=== PATIENT | male | born 1995 | race Caucasian/White ===

== ENCOUNTER 2019-06-26 17:08 | Emergency (ER) | payer MEDICAID, OTHER ==
[~2019-06-26] VITALS: Ht 175.3 cm; Wt 81.8 kg
[~2019-06-26 17:08] MED LIST: OMEP20CA4 PO
[2019-06-26 17:13] VITALS: BP 139/89
[2019-06-26] MEDS ORDERED: LIDOcaine 1% W/epiNEPHrine 1:200,000 10ml vial IJ ONE (17:20)
[2019-06-26] MEDS ORDERED: SULF1TAB49 PO (17:43)
[2019-06-26] MEDS ORDERED: CEPH500C5 PO (17:43)
== END 2019-06-26 17:53 | disposition home or self-care (01) ==
LOC: ER 17:09
DX: L02.414 Cutaneous abscess of left upper limb (principal); Z90.49 Acquired absence of other specified parts of digestive tract; Z79.899 Other long term (current) drug therapy; Z88.0 Allergy status to penicillin
CPT/HCPCS: 10060; 99283

== ENCOUNTER 2019-10-31 08:23 | Emergency (ER) | payer MEDICAID, OTHER ==
[~2019-10-31] VITALS: Ht 175.3 cm; Wt 77.3 kg
[2019-10-31 09:29] LABS: BASOPHILS % (AUTO) 0.4 % (0-1); EOSINOPHILS # (AUTO) 0.1 X10'3 (0-0.9); HEMATOCRIT 38.7 % (42.0-52.0); HEMOGLOBIN 13.2 g/dl (14.0-17.9); LYMPHOCYTES # (AUTO) 1.4 X10'3 (1.1-4.8); LYMPHOCYTES % (AUTO) 23.8 % (21-51); MEAN CORPUSCULAR HEMOGLOBIN 29.2 PG (27.0-31.0); MEAN CORPUSCULAR HGB CONC 34.2 g/dL (33.0-36.5); MEAN CORPUSCULAR VOLUME 85.3 FL (78-98); MEAN PLATELET VOLUME 7.3 FL (7.4-10.4); MONOCYTES # (AUTO) 0.6 X10'3 (0-0.9); MONOCYTES % (AUTO) 10.9 % (2-12); NEUTROPHILS # (AUTO) 3.6 X10'3 (1.8-7.7); NEUTROPHILS % (AUTO) 62.9 % (42-75); PLATELET COUNT 279 X10'3 (140-440); RED BLOOD COUNT 4.53 X10'6 (4.70-6.10); RED CELL DISTRIBUTION WIDTH 13.5 % (11.5-14.5); WHITE BLOOD COUNT 5.7 X10'3 (4.5-11.0)
[2019-10-31 09:43] LABS: ALANINE AMINOTRANSFERASE 84 U/L (12-78); ALBUMIN 3.6 G/DL (3.4-5.0); ALBUMIN/GLOBULIN RATIO 0.9 (1.1-1.5); ALKALINE PHOSPHATASE 101 IU/L (46-116); ANION GAP 7 (8-16); ASPARTATE AMINO TRANSFERASE 42 U/L (10-37); BILIRUBIN,TOTAL 0.3 MG/DL (0.1-1.0); BLOOD UREA NITROGEN 14 MG/DL (7-18); BUN/CREATININE RATIO 13.9 (5.4-32.0); CALCIUM 9.3 MG/DL (8.5-10.1); CHLORIDE 105 MMOL/L (99-107); CREATININE 1.01 MG/DL (0.60-1.10); GLUCOSE 95 MG/DL (70-104); POTASSIUM 3.8 MMOL/L (3.5-5.1); SODIUM 140 MMOL/L (135-145); TOTAL CARBON DIOXIDE 27.7 MMOL/L (24-32); TOTAL PROTEIN 7.6 G/DL (6.4-8.2); eGFR 90 ML/MIN
[2019-10-31] MEDS ORDERED: iohexol 300mg/ml 100ml inj. ONE (09:57)
--- NOTE | 2019-10-31 10:01 | NUR ---
US at bedside
[2019-10-31] MEDS ORDERED: clindamycin 600mg/D5W 50ml 50 ML IV ONE (10:15)
[2019-10-31 11:46] VITALS: BP 109/68
[2019-10-31] MEDS ORDERED: CLIN150C8 PO (12:08)
== END 2019-10-31 12:21 ==
LOC: ER 08:24
DX: S81.812A Laceration without foreign body, left lower leg, initial encounter (principal); B99.8 Other infectious disease; Z90.49 Acquired absence of other specified parts of digestive tract; Z72.89 Other problems related to lifestyle; Z88.0 Allergy status to penicillin; Z79.899 Other long term (current) drug therapy
CPT/HCPCS: 36415; 73201; 80053; 84145; 85025; 93971; 96365; 99285; Q9967; J3490

== ENCOUNTER 2019-12-05 09:40 | Emergency (ER) | payer MEDICAID, OTHER ==
[~2019-12-05] VITALS: Ht 175.3 cm; Wt 81.8 kg
[~2019-12-05 09:40] MED LIST changes: +CLIN150C8 PO
[2019-12-05 09:41] VITALS: BP 108/69
--- NOTE | 2019-12-05 12:19 | NUR ---
I attempted to contact patient by listed phone. Unable to leave voice mail.
== END 2019-12-05 12:53 | disposition left against medical advice (07) ==
LOC: ER 09:40
DX: S81.819A Laceration without foreign body, unspecified lower leg, initial encounter (principal); Z53.21 Procedure and treatment not carried out due to patient leaving prior to being seen by health care provider